=== PATIENT | male | born 1990 | race Two or more races ===

== ENCOUNTER 2016-06-25 19:22 | Emergency (ER) | payer MEDICAID ==
[~2016-06-25] VITALS: Ht 182.9 cm; Wt 102.1 kg
[2016-06-25 21:32] VITALS: BP 130/69
== END 2016-06-25 21:32 | disposition home or self-care (01) ==
LOC: ER 19:28
DX: S61.216A Laceration without foreign body of right little finger without damage to nail, initial encounter (principal); W25.XXXA Contact with sharp glass, initial encounter; Y93.89 Activity, other specified; Y92.89 Other specified places as the place of occurrence of the external cause; Y99.8 Other external cause status
CPT/HCPCS: 29130; 73140; 99284; A4606; Z7610